=== PATIENT | male | born 1935 | race Caucasian/White ===

== ENCOUNTER 2017-12-04 10:37 | Outpatient (CLI) | payer MEDICARE, BC ==
[~2017-12-04 10:37] MED LIST: Iopamidol 370 76% 100 ML VIAL ONE
== END 2017-12-04 10:38 | disposition home or self-care (01) ==
LOC: BICCT 10:37
PROVIDERS: ATTEND Internal Medicine Hematology & Oncology
DX: C83.33 Diffuse large B-cell lymphoma, intra-abdominal lymph nodes (principal)
CPT/HCPCS: 71260; 74160

== ENCOUNTER 2018-12-17 08:23 | Day surgery (SDC) | payer MEDICARE, BC ==
[2018-12-14 16:10] VITALS: BMI 19.1
--- NOTE | 2018-12-17 12:44 | OP ---
DATE OF PROCEDURE: 12/17/2018 PREOPERATIVE DIAGNOSES: 1. History of B-cell lymphoma, small bowel, in remission with negative CAT scan recently. 2. Anorexia, but stable weight with normal labs recently. POSTOPERATIVE DIAGNOSES: 1. Normal esophagogastroduodenoscopy. 2. The patient did have a normal screening colonoscopy in 2016. This was not repeated. RECOMMENDATIONS: Return to regular diet. If the patient develops abdominal pain, has any significant weight loss, we are more than happy to re-evaluate him with stable weight and lack of any intestinal anginal symptoms. I do not think that we need to embark on any further evaluation or medications. ANESTHESIA: TIVA. PROCEDURE IN DETAIL: The patient was informed of the risks, benefits, and possible complications of endoscopy including perforation, reaction to medication, and aspiration. Informed consent was obtained. The patient was brought to endoscopy suite, where he was sedated in gradual fashion. Once he was comfortable, bite block was placed inside the orifice. The endoscope was advanced through the esophagus, stomach, and second and third portions of the duodenum, and slowly removed. The duodenum was normal to the third portion. The ampullary region was closely surveyed and was normal. There were no signs of lymphoma or infiltration into the bowel or lesions. Duodenum was normal. Stomach was normal in forward and retroflexed views. The esophagus was normal. The scope was removed. The patient tolerated the procedure well. There were no complications. Job ID: [id number]
[2018-12-17] MEDS ORDERED: PROPOFOL 200 MG/20 ML VIAL ONE (16:33)
== END 2018-12-17 12:26 | disposition home or self-care (01) ==
LOC: SDC 08:23
PROVIDERS: ATTEND Internal Medicine Gastroenterology
PROC: 0DJ08ZZ Inspection of Upper Intestinal Tract, Via Natural or Artificial Opening Endoscopic (ICD-10-PCS; principal; 2018-12-17)
DX: R63.0 Anorexia (principal); D64.9 Anemia, unspecified; M19.90 Unspecified osteoarthritis, unspecified site; Z85.72 Personal history of non-Hodgkin lymphomas; Z90.89 Acquired absence of other organs; Z88.7 Allergy status to serum and vaccine; Z79.899 Other long term (current) drug therapy

== ENCOUNTER 2019-07-15 09:41 | Outpatient (CLI) | payer MEDICARE, BC ==
--- NOTE | 2019-07-15 11:40 | CT ---
CT Abdomen Pelvis W Con: 07/15/2019 12:00 AM CLINICAL INFORMATION: Weight loss. History of lymphoma that is in remission COMPARISON: 08/24/2016 TECHNIQUE: Multiple contiguous axial images were obtained and a CT of the abdomen and pelvis with IV contrast. Oral contrast was administered. Coronal and sagittal reformats were performed. FINDINGS: Lower Chest: within normal limits. Abdomen: Liver: within normal limits. Bile Ducts: Normal caliber. Gallbladder: No calcified gallstones. Normal caliber wall. Pancreas: within normal limits. Spleen: within normal limits. Adrenals: within normal limits. Kidneys: within normal limits. Pelvis: Reproductive Organs: No pelvic masses. Ureters: within normal limits. Bladder: within normal limits. Peritoneum: No ascites or free air, no fluid collection. Bowel: Normal caliber. Scattered diverticula in the colon. Mesentery and Retroperitoneum: No enlarged mesenteric or retroperitoneal lymph nodes. Vessels: Normal. Abdominal Wall: within normal limits. Bones: Right hip prosthesis produces streak artifact limiting evaluation of the pelvis. There is a st able sclerotic appearance of the bones of the pelvis. IMPRESSION: 1. No evidence of acute intraabdominal or pelvic abnormality. 2. Diverticulosis
[2019-07-15] MEDS ORDERED: Iopamidol-370 76% 500 ML 1 ML ONE (13:17)
== END 2019-07-15 09:42 | disposition home or self-care (01) ==
LOC: BICCT 09:41
PROVIDERS: ATTEND Physician Assistant Medical
DX: C83.33 Diffuse large B-cell lymphoma, intra-abdominal lymph nodes (principal); R63.4 Abnormal weight loss; K56.609 Unspecified intestinal obstruction, unspecified as to partial versus complete obstruction; R63.0 Anorexia; K59.00 Constipation, unspecified; K57.30 Diverticulosis of large intestine without perforation or abscess without bleeding
CPT/HCPCS: 74177; Q9967

== ENCOUNTER → 2020-04-07 | Day surgery (SDC) | payer MEDICARE, BC ==
[2020-04-06 15:02] VITALS: BMI 19.6
[2020-04-07 08:44] LABS: PTT 28.4 sec (22.9-36.1)
[2020-04-07 08:48] LABS: INR-International Normal Ratio 1.5; Prothrombin Time 18.6 sec (12.0-14.7)
[2020-04-07 09:10] VITALS: BP 110/63; TEMP 97.7
--- NOTE | 2020-04-07 11:47 | CT ---
Liver mass biopsy CT-guided HISTORY: Liver masses. Pancreas mass. FINDINGS: After explaining the procedure and answering all questions, limited CT imaging the abdomen was performed. Multiple low density liver masses seen. Sterile technique, buffered local anesthesia, CT guidance, and a right lateral intercostal approach w ere used to carefully advance a 17-gauge trocar needle into one of the larger peripheral masses of the right liver lobe. Position was confirmed with CT. A total of 2 18-gauge core biopsy specimens were obtained and submitted to pathology for evaluation a nd processing. Needle was removed. No evidence of complication. Patient tolerated the procedure well and was returned to the holding area in good condition for further monitoring. IMPRESSION : Technically successful CT-guided liver mass biopsy.
--- NOTE | 2020-04-08 10:42 | CT ---
Liver mass biopsy CT-guided HISTORY: Liver masses. Pancreas mass. FINDINGS: After explaining the procedure and answering all questions, limited CT imaging the abdomen was performed. Multiple low density liver masses seen. Sterile technique, buffered local anesthesia, CT guidance, and a right lateral intercostal approach w ere used to carefully advance a 17-gauge trocar needle into one of the larger peripheral masses of the right liver lobe. Position was confirmed with CT. A total of 2 18-gauge core biopsy specimens were obtained and submitted to pathology for evaluation a nd processing. Needle was removed. No evidence of complication. Patient tolerated the procedure well and was returned to the holding area in good condition for further monitoring. IMPRESSION : Technically successful CT-guided liver mass biopsy. Transcribed Date/Time: 04/08/2020 10:42 AM
== END ==
LOC: CT 08:12
PROVIDERS: ATTEND Internal Medicine Hematology & Oncology
PROC: 0FB13ZX Excision of Right Lobe Liver, Percutaneous Approach, Diagnostic (ICD-10-PCS; principal; 2020-04-07)
DX: C25.9 Malignant neoplasm of pancreas, unspecified (principal); C78.7 Secondary malignant neoplasm of liver and intrahepatic bile duct; J44.9 Chronic obstructive pulmonary disease, unspecified; I11.0 Hypertensive heart disease with heart failure; I50.9 Heart failure, unspecified; N40.0 Benign prostatic hyperplasia without lower urinary tract symptoms; M19.90 Unspecified osteoarthritis, unspecified site; G62.9 Polyneuropathy, unspecified; Z85.72 Personal history of non-Hodgkin lymphomas; Z86.73 Personal history of transient ischemic attack (TIA), and cerebral infarction without residual deficits; Z79.899 Other long term (current) drug therapy; Z88.7 Allergy status to serum and vaccine
CPT/HCPCS: 36415; 47000; 77002; 85610; 85730; 88307; 88333